=== PATIENT | male | born 1970 ===

== ENCOUNTER 2024-10-05 15:39 | Outpatient (REF) | payer BC, SELFPAY ==
[2024-10-05 15:37] LABS: COVID-19 PCR Negative (Negative); Influenza A PCR Negative (Negative); Influenza B PCR Negative (Negative); RSV PCR Negative (Negative)
[2024-10-05 15:39] LABS: Source Nasopharynx
--- OUTSIDE RECORDS SUMMARY | 2024-10-05 15:42 | XMS_ITS | Encounter Summary ---
Author Organization [facility] Address [address] [place] [address] Care Team Providers Care Psychologist Experimental Name Role Phone Dragan Jha MD Primary Care Provider [phone] Encounter Details Date Type Department Care Team (Late st Contact Info) Description 04/24/2016 9:11 EDT - 04/24/2016 23:59 EDT Hospital Encounter [facility] [address] [place] [address] Unknown, Provider, Annabel Herrera MD [address] [place] [phone] Discharge Disposition: Home or Self Care Social History Tobacco Use Types Packs/Day Years Used Date Smoking Tobacco: Never Assessed Sex and Gender Information Value Date Recorded Sex Assigned at Not on file Legal Sex Male 18:47 EST Gender Identity Not on file Sexual Orientation Not on file documented as of this encounter Discharge Diagnoses Diagnosis Z52.000 Unspecified donor, whole blood-Z52.000[ICD-10-CM] documented in this encounter Discharge Disposition Disposition Code Departure Means Destination Home or Self Halfway documented in this encounter Plan of Treatment Not on file documented as of this encounter Visit Diagnoses Not on filedocumented in this encounter Care Teams Psychologist Experimental Relationship Specialty Start Date End Date Dragan Jha MD [address] [phone] PCP - General 09/18/09 documented as of this encounter
--- OUTSIDE RECORDS SUMMARY | 2024-10-05 15:42 | XMS_ITS | Encounter Summary ---
Author Organization [facility] Address [address] [place] [address] Care Team Providers Care Pipe Racker Name Role Phone Dragan Jha MD Primary Care Provider [phone] Encounter Details Date Type Department Care Team (Late st Contact Info) Description 04/24/2016 Phlebotomy Only [facility] [address] [place] [address] Picture Hanger, Outpatient Whole blood donor (Primary Dx) Social History Tobacco Use Types Packs/Day Years Used Date Smoking Tobacco: Never Assessed Sex and Gender Information Value Date Recorded Sex Assigned at Not on file Legal Sex Male 18:47 EST Gender Identity Not on file Sexual Orientation Not on file documented as of this encounter Plan of Treatment Not on file documented as of this encounter Procedures Procedure Name Priority Date/Time Associated Diagnosis Comments ABO/RH Routine 04/24/2016 12:05 EDT Whole blood donor HLA CLS I & II, DNA Routine 04/24/2016 1 1:10 EDT Whole blood donor documented in this encounter Results * ABO/RH (04/24/2016 12:05 EDT) ABO A [facility] Rh Factor Positive [facility] Blood specimen (specimen) 04/24/2016 12:05 EDT us Annabel Mendez MD BLOOD BANK TESTS Fin al Result [facility] [address] [facility] [place] [address] * HLA CLS I & II, DNA (04/24/2016 11:10 EDT) Purpose For Testing Potential bone marrow donor 06/17/2016 14:11 [facility] Date Tested 04/28/2016 06/17/2016 14:11 [facility] A Locus (DNA) 11:XX 06/17/2016 14:11 [facility] A Locus (DNA) 68:XX 06/17/2016 14:11 [facility] B Locus (DNA) 35:XX 06/17/2016 14:11 [facility] B Locus (DNA) 40:XX 06/17/2016 14:11 [facility] C Locus (DNA) 03:XX 06/17/2016 14:11 [facility] C Locus (DNA) 04:XX 06/17/2016 14:11 [facility] Clinical Interp. The molecular to serologic conversion based upon Tissue Antigens, 75:291-455, 2010 is: 06/17/2016 14:11 [facility] Comment:A11,A68,B35,B60,BW6, CW4,CW10 Methodology Tested by PCR-RSSO 04/24/2016 11:07 [facility] Purpose For Testing Potential bone marrow donor 06/17/2016 14:11 [facility] Date Tested 04/28/2016 06/17/2016 14:11 [facility] DRB1 Locus (DNA) 01:XX 06/17/2016 14:11 [facility] DRB1 Locus (DNA) 13:XX 06/17/2016 14:11 [facility] [id number] Locus (DNA) 3*03:01 06/17/2016 14:11 [facility] [id number] Locus (DNA) 3*03:01 06/17/2016 14:11 [facility] DQ Alpha 1 Locus DNA 01:XX 06/17/2016 14:11 [facility] DQ Alpha 1 Locus DNA 01:XX 06/17/2016 14:11 T [facility] DQ Beta 1 Locus DNA 05:XX 06/17/2016 14:11 [facility] DQ Beta 1 Locus DNA 06:XX 06/17/2016 14:11 [facility] DP Alpha 1 Locus DNA 01:03 06/17/2016 14:11 [facility] DP Alpha 1 Locus DNA 01:XX 06/17/2016 14:11 [facility] DP Beta 1 Locus DNA 04:02/105:01 06/17/2016 14:11 [facility] DP Beta 1 Locus DNA 23:01/138:01 06/17/2016 14:11 [facility] Clinical Interp. The molecular to serologic conversion based upon Tissue Antigens, 75:291-455, 2010 is: 06/17/2016 14:11 [facility] Comment:DR1,DR13,DR52,DQ5,DQ 6,DP4P,DP23P Methodology Tested by PCR-RSSO 04/24/2016 11:07 [facility] Blood specimen (specimen) BLOOD SPECIMEN / Unknown 04/24/2016 11:10 EDT 04/24/2016 12:03 EDT Annabel Mendez MD TISSUE TYPING ORDERA BLES Final Result Performing Organization Address City/State/[facility] Co de Phone Number [facility] [address] [place] [address] documented in this encounter Visit Diagnoses Diagnosis Whole blood donor- Primary documented in this encounter Care Teams Pipe Racker Relationship Specialty Start Date End Date Dragan Jha MD [address] [phone] PCP - General 09/18/09 documented as of this encounter
--- OUTSIDE RECORDS SUMMARY | 2024-10-05 15:42 | XMS_ITS | Clinical Summary ---
Author Organization [facility] Address [address] [place] [address] Care Team Providers Care Straightening Roll Operator Name Role Phone Dragan Jha MD Primary Care Provider [phone] Medications No known medications Social History Tobacco Use Types Packs/Day Years Used Date Smoking Tobacco: Never Assessed Sex and Gender Information Value Date Recorded Sex Assigned at Not on file Legal Sex Male 18:47 EST Gender Identity Not on file Sexual Orientation Not on file Plan of Treatment Health Maintenance Due Date Last Done Comments Hepatitis C Screen 1972 Hepatitis B Vaccine (1 of 3 - 19+ 3-dose series) 02/23 COVID-19 Vaccine ( season) 2024 Care Teams Straightening Roll Operator Relationship Specialty Start Date End Date Dragan Jha MD [address] [phone] PCP - General 09/18/09
--- OUTSIDE RECORDS SUMMARY | 2024-10-05 15:42 | XMS_ITS | Encounter Summary ---
Author Organization [facility] Address [address] [place] [address] Care Team Providers Care Anesthesiology Technologist Name Role Phone Dragan Jha MD Primary Care Provider [phone] Encounter Details Date Type Department Care Team (Late st Contact Info) Description 01/09/2017 12:22 EDT - 01/09/2017 12:23 EDT Hospital Encounter [facility] [address] [place] [address] Sabine Arnold, MS [address] [place] [address] Discharge Disposition: Home or Self Care Social History Tobacco Use Types Packs/Day Years Used Date Smoking Tobacco: Never Assessed Sex and Gender Information Value Date Recorded Sex Assigned at Not on file Legal Sex Male 18:47 EST Gender Identity Not on file Sexual Orientation Not on file documented as of this encounter Discharge Diagnoses Diagnosis Z84.89 Family history of other specified conditions-Z84.89[ICD-10-CM] documented in this encounter Discharge Disposition Disposition Code Departure Means Destination Home or Self Care documented in this encounter Plan of Treatment Not on file documented as of this encounter Visit Diagnoses Not on filedocumented in this encounter Care Teams Anesthesiology Technologist Relationship Specialty Start Date End Date Dragan Jha MD [address] [phone] PCP - General 09/18/09 documented as of this encounter
--- OUTSIDE RECORDS SUMMARY | 2024-10-05 15:42 | XMS_ITS | Encounter Summary ---
Author Organization [facility] Address [address] [place] [address] Care Team Providers Care Scoring Machine Operator Name Role Phone Dragan Jha MD Primary Care Provider [phone] Reason for Referral * Consult (Routine) - Closed Specialty Diagnoses / Procedures Referred By Juanito plaza Referred To Contact Cancer Genetics Diagnoses Family history of genetic disorder Sabine Arnold, MS [address] [place] [address] Phone: tel: fax: Referral ID Status Reason Start Date Expiration Date V isits Requested Visits Authorized [id number] Closed Specialty Services Required 01/01/2017 1 1 Question Answer 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 He will be bringing two sons, Ronnie and Aurelio as well. Encounter Details Date Type Department Care Team (Late st Contact Info) Description 01/01/2017 Orders Only [facility] Cancer Center Hematology & Oncology - [facility] [address] [place], [place] [address] Sabine Arnold, MS [address] [place], [place] [id number] Family history of genetic disorder (Primary Dx) Social History Tobacco Use Types Packs/Day Years Used Date Smoking Tobacco: Never Assessed Sex and Gender Information Value Date Recorded Sex Assigned at Not on file Legal Sex Male 18:47 EST Gender Identity Not on file Sexual Orientation Not on file documented as of this encounter Plan of Treatment Scheduled Referrals Name Type Priority Associated Diagnoses Orde r Schedule AMB CONS/FOLLOW UP FAMILIAL CANCER PROGRAM Outpatient Referral Routine Family history of genetic disorder Ordered: 01/01/2017 documented as of this encounter Visit Diagnoses Diagnosis Family history of genetic disorder- Primary Family history of other condition documented in this encounter Care Teams Scoring Machine Operator Relationship Specialty Start Date End Date Dragan Jha MD [address] [phone] PCP - General 09/18/09 documented as of this encounter
--- OUTSIDE RECORDS SUMMARY | 2024-10-05 15:42 | XMS_ITS | Encounter Summary ---
Author Organization [facility] Address [address] [place] [address] Care Team Providers Care Clinical Support Manager Name Role Phone Dragan Jha MD Primary Care Provider [phone] Encounter Details Date Type Department Care Team (Late st Contact Info) Description 01/09/2017 Phlebotomy Only [facility] [address] [place] [address] Head Of Talent Management, Outpatient Social History Tobacco Use Types Packs/Day Years [...] on filedocumented in this encounter Care Teams Clinical Support Manager Relationship Specialty Start Date End Date Dragan Jha MD [address] [phone] PCP - General 09/18/09 documented as of this encounter
--- OUTSIDE RECORDS SUMMARY | 2024-10-05 15:42 | XMS_ITS | Referral Summary ---
Author Organization [facility] Address [address] [place] [address] Care Team Providers Care Rotoformer Backtender Name Role Phone Dragan Jha MD Primary Care Provider [phone] Medications No known medications Social History Tobacco Use Types Packs/Day Years Used Date Smoking Tobacco: Never Assessed Sex and Gender Information Value Date Recorded Sex Assigned at Not on file Legal Sex Male 18:47 EST Gender Identity Not on file Sexual Orientation Not on file Plan of Treatment Not on file Care Teams Rotoformer Backtender Relationship Specialty Start Date End Date Dragan Jha MD [address] [phone] PCP - General 09/18/09
--- OUTSIDE RECORDS SUMMARY | 2024-10-05 15:42 | XMS_ITS | Encounter Summary ---
Author Organization [facility] Address [address] [place] [address] Care Team Providers Care Electrician Refinery Name Role Phone Dragan Jha MD Primary Care Provider Reason for Visit * Reason Comments Genetic Evaluation * Consult (Routine) - Closed Specialty Diagnoses / Procedures Referred By Juanito plaza Referred To Contact Cancer Genetics Diagnoses Family history of genetic disorder Sabine Arnold, MS [address] [place] [address] Phone: tel: fax: Referral ID Status Reason Start Date Expiration Date V isits Requested Visits Authorized [id number] Closed Specialty Services Required 01/01/2017 1 1 Encounter Details Date Type Department Care Team (Late st Contact Info) Description 01/09/2017 9:00 EDT Office Visit [facility] Center Hematology & Oncology - [facility] [address] [place], [place] [address] Unknown, Provider, Sabine Nicole, MS [address] [place], [place] [id number] [place] [address] [place] [phone] Genetic counseling and testing (Primary Dx); Family history of genetic disorder Discharge Disposition: Auto Discharge Social History Tobacco Use Types Packs/Day Years Used Date Smoking Tobacco: Never Assessed Sex and Gender Information Value Date Recorded Sex Assigned at Not on file Legal Sex Male 18:47 EST Gender Identity Not on file Sexual Orientation Not on file documented as of this encounter Discharge Disposition Disposition Code Departure Means Destination Auto Discharge documented in this encounter Progress Notes * Sabine Arnold MS - 01/09/2017 0900 EDT I saw Sid (Juaquin) together with his and two sons for discussion of 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 He is followed at [facility] and is planning to undergo a bone marrow transplant with his sister being the donor. 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 Juaquin is undergoing testing to determine if he also carries the GATA2 variant. We discussed implications if he is +. The current recommendations are to have a baseline bone marrow biopsy and if normal, follow with CBC every 6 months. Juaquin consented to genetic testing and understands his results will either be positive or negative. I will call with results and make a follow up appointment if the results arepositive to further discuss implications. * Tisha Hoyt - 01/09/2017 0900 EDT Co-signature not obtained and service no longer billable. documented in this encounter Plan of Treatment Not on file documented as of this encounter Procedures Procedure Name Priority Date/Time Associated Diagnosis Comments PATHOLOGY - SCANNED 01/28/2017 22:48 EDT documented in this encounter Results * PATHOLOGY - SCANNED (01/28/2017 22:48 EDT) 01/28/2017 22:4 8 EDT us Scan 2 Explosive Operator Fuse LAB INFO SERVICE AND SUPPOR T & PHONE RESULT Final Result documented in this encounter Visit Diagnoses Diagnosis Genetic counseling and testing- Primary Genetic counseling Family history of genetic disorder Family history of other condition documented in this encounter Care Teams Electrician Refinery Relationship Specialty Start Date End Date Dragan Jha MD [address] [phone] PCP - General 09/18/09 documented as of this encounter
--- OUTSIDE RECORDS SUMMARY | 2024-10-05 15:42 | XMS_ITS | Encounter Summary ---
Author Organization [facility] Address [address] [place] [address] Care Team Providers Care Manager Pharmaceutical Name Role Phone Dragan Jha MD Primary Care Provider [phone] Encounter Details Date Type Department Care Team (Late st Contact Info) Description 01/09/2017 Results Only [facility] Cancer Center Hematology & Oncology - [facility] [address] [place] [address] [place] [id number] [phone] Social History Tobacco Use Types Packs/Day Years [...] Procedure Name Priority Date/Time Associated Diagnosis Comments REFERRAL TEST 1 Routine 01/09/2017 9:58 EDT documented in this encounter Results * REFERRAL TEST 1 (01/09/2017 9:58 EDT) Test Name FAMILY VARIANT TESTING 01/09/2017 10:34 EDT [facility] Result See Pathology Scanned Report in PRISM. 01/29/2017 11:19 EDT [facility] Comment:Assayed at [employer], [place], [place] Ref Lab INVITAE 01/09/2017 10:34 EDT [facility] Date Sample Shipped [id number] 01/09/2017 10:50 EDT [facility] Comment:Corrected on 01/09 A T 1050: Previously reported as [id number] TOPOGRAPHY UNKNOWN / Unknown 01/09/2017 9:58 EDT 01/09/2017 10:32 EDT us Brianda Armstrong MD LAB INFO SERVICE AND SUPPORT & PHONE RESULT Edited Result - Final [facility] [address] [place] [address] documented in this encounter Visit Diagnoses Not on filedocumented in this encounter Care Teams Manager Pharmaceutical Relationship Specialty Start Date End Date Dragan Jha MD [address] [phone] PCP - General 09/18/09 documented as of this encounter
--- OUTSIDE RECORDS SUMMARY | 2024-10-05 15:42 | XMS_ITS | Encounter Summary ---
Author Organization [facility] Address [address] [place] [address] Care Team Providers Care Intelligence Clerk Name Role Phone Dragan Jha MD Primary Care Provider [phone] Reason for Visit * Reason Onset Date Comments Labs Only 04/18/2016 Encounter Details Date Type Department Care Team (Late st Contact Info) Description 04/18/2016 Orders Only [facility] Pediatric Hematology & Oncology - [facility] [address] [place] [address] Olivia Unger, RN [address] [place] [address] Whole blood donor (Primary Dx) Social History Tobacco Use Types Packs/Day Years Used Date Smoking Tobacco: Never Assessed Sex and Gender Information Value Date Recorded Sex Assigned at Not on file Legal Sex Male 18:47 EST Gender Identity Not on file Sexual Orientation Not on file documented as of this encounter Plan of Treatment Not on file documented as of this encounter Results * ABO/RH (04/24/2016 12:05 EDT) ABO A [facility] BLOOD [facility] Rh Factor Positive [facility] Blood specimen (specimen) 04/24/2016 12:05 EDT Annabel Mendez MD BLOOD BANK TESTS Fin al Result [facility] [address] [place], [place] [address] * HLA CLS I & II, DNA (04/24/2016 11:10 EDT) Purpose For Testing Potential bone marrow donor 06/17/2016 14:11 [facility] Date Tested 04/28/2016 06/17/2016 14:11 [facility] A Locus (DNA) 11:XX 06/17/2016 14:11 [facility] A Locus (DNA) 68:XX 06/17/2016 14:11 [facility] B Locus (DNA) 35:XX 06/17/2016 14:11 [facility] B Locus (DNA) 40:XX 06/17/2016 14:11 [facility] C Locus (DNA) 03:XX 06/17/2016 14:11 [facility] C Locus (DNA) 04:XX 06/17/2016 14:11 [facility] Clinical Interp. The molecular to serologic conversion based upon Tissue Antigens, 75:291-455, 2009 is: 06/17/2016 14:11 [facility] Comment:A11,A68,B35,B60,BW6, CW4,CW10 Methodology Tested by PCR-RSSO 04/24/2016 11:07 [facility] Purpose For Testing Potential bone marrow donor 06/17/2016 14:11 [facility] Date Tested 04/28/2016 06/17/2016 14:11 [facility] DRB1 Locus (DNA) 01:XX 06/17/2016 14:11 [facility] DRB1 Locus (DNA) 13:XX 06/17/2016 14:11 [facility] [id number] Locus (DNA) 3*03:01 06/17/2016 14:11 [facility] [id number] Locus (DNA) 3*03:01 06/17/2016 14:11 [facility] DQ Alpha 1 Locus DNA 01:XX 06/17/2016 14:11 [facility] DQ Alpha 1 Locus DNA 01:XX 06/17/2016 14:11 [facility] DQ Beta 1 Locus DNA 05:XX 06/17/2016 14:11 [facility] DQ Beta 1 Locus DNA 06:XX 06/17/2016 14:11 T [facility] DP Alpha 1 Locus DNA 01:03 06/17/2016 14:11 T [facility] DP Alpha 1 Locus DNA 01:XX 06/17/2016 14:11 [facility] DP Beta 1 Locus DNA 04:02/105:01 06/17/2016 14:11 [facility] DP Beta 1 Locus DNA 23:01/138:01 06/17/2016 14:11 [facility] Clinical Interp. The molecular to serologic conversion based upon Tissue Antigens, 75:291-455, 2010 is: 06/17/2016 14:11 [facility] Comment:DR1,DR13,DR52,DQ5,DQ 6,DP4P,DP23P Methodology Tested by PCR-RSSO 04/24/2016 11:07 [facility] Blood specimen (specimen) BLOOD SPECIMEN / Unknown 04/24/2016 11:10 EDT 04/24/2016 12:03 EDT us Annabel Mendez MD TISSUE TYPING ORDERA BLES Final Result [facility] [address] [place] [address] documented in this encounter Visit Diagnoses Diagnosis Whole blood donor- Primary documented in this encounter Care Teams Intelligence Clerk Relationship Specialty Start Date End Date Dragan Jha MD [address] [phone] PCP - General 09/18/09 documented as of this encounter
--- OUTSIDE RECORDS SUMMARY | 2024-10-05 15:42 | XMS_ITS | Encounter Summary ---
Author Organization [facility] Address [address] [place] [address] Care Team Providers Care Assistant Department Manager Name Role Phone Dragan Jha MD Primary Care Provider [phone] Reason for Visit * Reason Onset Date Comments Results 02/06/2017 Encounter Details Date Type Department Care Team (Late st Contact Info) Description 02/06/2017 Telephone [facility] Hematology & Oncology - [facility] [address] [place], [place] [phone] Sabine Arnold, MS [address] [place], [place] [address] Results Social History Tobacco Use Types Packs/Day Years Used Date Smoking Tobacco: Never Assessed Sex and Gender Information Value Date Recorded Sex Assigned at Not on file Legal Sex Male 18:47 EST Gender Identity Not on file Sexual Orientation Not on file documented as of this encounter Miscellaneous Notes * Telephone Encounter - Sabine Arnold, - 02/06/2017 1207 EDT for Juaquin regarding his genetic test results. He is negative for the GATA2 mutation previously identified in his son. A copy of these results have been mailed to Juaquin. documented in this encounter Plan of Treatment Not on file documented as of this encounter Visit Diagnoses Not on filedocumented in this encounter Care Teams Assistant Department Manager Relationship Specialty Start Date End Date Dragan Jha MD [address] [phone] PCP - General 09/18/09 documented as of this encounter
--- OUTSIDE RECORDS SUMMARY | 2024-10-05 15:42 | XMS_ITS | Encounter Summary ---
Author Organization [facility] Address [address] [place] [address] Care Team Providers Care [employer] Name Role Phone Dragan Jha MD Primary Care Provider [phone] Encounter Details Date Type Department Care Team (Late st Contact Info) Description 09/18/2009 12:37 EST - 09/18/2009 23:59 EST Hospital Encounter [facility] [address] [place] [address] Vignesh Nino MD [address] [place] [id number] Discharge Disposition: Home or Self Care Social History Tobacco Use Types Packs/Day Years Used Date Smoking Tobacco: Never Assessed Sex and Gender Information Value Date Recorded Sex Assigned at Not on file Legal Sex Male 18:47 EST Gender Identity Not on file Sexual Orientation Not on file documented as of this encounter Discharge Disposition Disposition Code Departure Means Destination Home or Self Residential documented in this encounter Plan of Treatment Not on file documented as of this encounter Procedures Procedure Name Priority Date/Time Associated Diagnosis Comments SLIDE REQUEST Routine 09/18/2009 12:46 EST COMPLETE BLOOD COUNT AND DIFFERENTIAL Routine 09/18/2009 12:46 EST documented in this encounter Results * SLIDE REQUEST (09/18/2009 12:46 EST) Note A smear is filed in the Hematology lab [facility] 09/18/2009 12:4 6 EST 09/18/2009 12:50 EST Vignesh Nino MD HEMATOLOGY & PF4 ORDERABLES Fin al Result [facility] [address] [place] [address] * (ABNORMAL) HEMAGRAM AND DIFFERENTIAL (09/18/2009 12:46 EST) WBC 5.06 4.0 - 10.4 K/cmm [facility] RBC 5.02 4.36 - 5.78 M/cmm [facility] Hemoglobin 16.5 13.8 - 17.3 gm/dl [facility] HCT 47.8 39.5 - 50.2 % [facility] MCV 95 81 - 95 fl [facility] MCH 32.9 27.6 - 33.0 pg [facility] MCHC 34.5 32.8 - 36.4 gm/dl [facility] PLT 138(L) 141 - 320 K/cmm [facility] RDW-CV 13.0 11.8 - 14.1 % [facility] Neutrophils 54.6 45.5 - 79.7 % [facility] Lymphocytes 27.1 15.0 - 46.8 % [facility] Monocytes 12.0 1.8 - 12.0 % [facility] Eosinophils 5.7 0.6 - 6.9 % [facility] Basophils 0.6 0.2 - 1.4 % [facility] ABS Neutrophils 2.77 2.20 - 8.85 K/cmm [facility] ABS Lymphs 1.37 1.09 - 3.30 K/cmm [facility] ABS Monocytes 0.61 0.1 - 0.8 K/cmm [facility] ABS Eosinophils 0.29 0.03 - 0.61 K/cmm [facility] ABS Basophils 0.03 0.01 - 0.11 K/cmm [facility] Type of Diff: Automated [facility] 09/18/2009 12:4 6 EST 09/18/2009 12:50 EST Vignesh Nino MD PACKAGES & DNA PROBE ORDERABLES Final Result [facility] [address] [place] [address] documented in this encounter Visit Diagnoses Not on filedocumented in this encounter Care Teams [employer] Relationship Specialty Start Date End Date Dragan Jha MD [address] [id number] PCP - General 09/18/09 documented as of this encounter
== END 2024-10-05 15:40 | disposition home or self-care (01) ==
LOC: LBN 15:39
PROVIDERS: Visit Provider Physician Assistant Medical
DX: B34.9 Viral infection, unspecified (principal)
CPT/HCPCS: 87637